=== PATIENT | male | born 1950 | race Caucasian/White ===

== ENCOUNTER 2022-09-20 14:46 | Emergency (ER) | payer MEDICARE, SELFPAY ==
[2022-09-20 14:48] VITALS: BP 135/76; PULSE 101; RESP 18; TEMP 37.3; O2SAT 96; BMI 30.7
--- NOTE | 2022-09-20 15:09 | EX.ED.DYSGE1 ---
HPI History of Present Illness Chief Complaint: General Illness Detail of Chief Complaint: Not feeling well and fever Informant: patient and spouse/S.O. Onset/Context/Timing Onset: Days (Onset of illness ) Context: Sudden Onset Timing: Continuous and Waxes and wanes Quality: Generalized feeling of unwellness, vague abdominal discomfort, constipation Location: Nothing specific Current Severity: Mild Maximum Severity: Moderate Worsened by: Nothing Relieved by: Nothing Associated Symptoms Associated Symptoms: Nausea, constipation, documented fever and vomiting today Narrative Narrative: Patient is a 72-year-old male who was [facility]. He has history of diverticulosis/diverticulitis. He states this is not similar. He apparently did work outside and it was shahid. is concerned for pneumonia. He admits to mild cough if anything. He has had a documented fever. He denies headache, visual, ocular auditory symptoms. He denies rhinorrhea, congestion, postnasal drainage or sore throat. The slight cough that he does have is nonproductive. He has been complaining of nausea. Today he has vomited. Dry heaves. Had episode of emesis prior to me seeing him. He initially complained of abdominal distention. Presently he does not have his abdominal distention. He states constipation is a chronic issue. He denies black, maroon or bloody stool. He denies urologic symptoms. He states his normal blood pressure is systolic of 1 35-1 45. Prior similar symptoms: No Recent Illness/Hospitalization: No [facility] Medical History (Updated 09/20/22 @ 20:[address] Gee Banegas MD) Nausea & vomiting Medical History no medical history no medical history (Has history of diverticulitis.) Home Medications cholecalciferol (vitamin D3) 25 mcg (1,000 unit) tablet (Vitamin D3) 25 mcg PO DAILY 09/20/22 [History Last Taken Unknown] hydrocodone-acetaminophen 5-325mg 5mg-325mg 1 tab PO Q6H PRN PRN Pain 3 days #10 TABLETS 09/20/22 [Rx Last Taken Unknown] inulin 2 gram chewable tablet (Fiber Gummies) 4 g PO DAILY 09/20/22 [History Last Taken Unknown] mecobalamin (vitamin B12) 1,000 mcg chewable tablet (B12 Active) 1,000 mcg PO DAILY 09/20/22 [History Last Taken Unknown] metoprolol succinate 25 mg tablet,extended release 24 hr 25 mg PO DAILY 09/20/22 [History Last Taken Unknown] ondansetron 4 mg disintegrating tablet 4 mg PO Q8H PRN PRN Nausea #10 tabs 09/20/22 [Rx Last Taken Unknown] Allergy/AdvReac Type Severity Reaction Status Date / Time acetaminophen [From Tylenol] AdvReac Other Verified 09/20/22 20:02 Surgical History no surgical history no surgical history (Appendectomy) Social History (Updated 09/20/22 @ 15:[address] Gee Banegas MD) household members: spouse Smoking Status: Former smoker alcohol intake: current alcohol intake frequency: holidays/special occasions only substance use type: does not use ROS ROS ED Constitutional Constitutional ED: Reports subjective; Denies chills, fever(s), sweats or weight loss Eyes Eyes: Denies blurry vision, change in vision or diplopia ENT ENT ED: Denies ear pain, rhinorrhea or sore throat Cardiovascular Cardiovascular: Reports other Details: He does endorse orthostatic symptoms. ; Denies chest pain, orthopnea, palpitations, paroxysmal nocturnal dyspnea or racing heartbeat Respiratory/Chest Respiratory/Chest: Reports cough; Denies dyspnea, dyspnea on exertion, orthopnea or paroxysmal nocturnal dyspnea Gastrointestinal Gastrointestinal: Reports abdominal pain, constipation, nausea and vomiting; Denies diarrhea or melena Genitourinary Genitourinary ED: Denies dysuria, hematuria or urinary frequency Musculoskeletal Musculoskeletal: Denies arthralgias, back pain, myalgias or neck pain Integumentary Denies abscess, Abrasions or rash Neurologic Neurologic: Reports weakness; Denies headache(s) or paresthesias Psychiatric Psychiatric: Denies anxiety or depression Hematologic/Lymphatic Hematologic/Lymphatic: Reports systems reviewed and no addt'l complaints, except as documented and none EXAM Physical Exam Const Vital Signs: 09/20/22 14:48 09/20/22 15:45 09/20/22 15:52 Temperature 99.2 F H Temperature Source Temporal Pulse Rate 101 H 95 Respiratory Rate 18 34 H Respiratory Effort Normal Non-Labored Respiratory Pattern Normal Blood Pressure 135/76 H Blood Pressure Mean 95 Pulse Ox 96 87 Oxygen Delivery Method Room Air Room Air Oxygen Flow Rate (L/min) 09/20/22 15:52 09/20/22 16:35 09/20/22 16:37 Temperature 99.6 F H Temperature Source Oral Pulse Rate 96 89 Respiratory Rate 28 H 18 Respiratory Effort Respiratory Pattern Blood Pressure 131/77 H 132/79 H Blood Pressure Mean 95 96 Pulse Ox 94 96 97 Oxygen Delivery Method Nasal Cannula Nasal Cannula Nasal Cannula Oxygen Flow Rate (L/min) 2 2 2 09/20/22 19:59 Temperature Temperature Source Pulse Rate 82 Respiratory Rate 16 Respiratory Effort Respiratory Pattern Blood Pressure 121/60 H Blood Pressure Mean 80 Pulse Ox 96 Oxygen Delivery Method Room Air Oxygen Flow Rate (L/min) Positive well nourished, well developed and obese Constitutional Narrative: Patient does not appear in distress; however, he does appear ill. General Appearance ED: well developed; Negative for cyanotic, diaphoretic, NAD or pallor Nutritional Appearance: obese HEENT Reports dry mucous membranes HEENT Narrative: Head is normocephalic atraumatic. Ears normal. Nares patent. Uvula midline. No deviation with protrusion. There is no erythema or exudate of posterior pharynx. Mouth ED: Yes dry mucous membranes Mouth: dry mucous membranes Eyes PERRL and EOMs intact bilaterally General Eye ED: Negative for pale conjunctiva or scleral icterus Neck no lymphadenopathy and supple Neck Narrative: There is no JVD. Chest Wall inspection of chest normal and palpation of chest normal Resp normal respiratory effort and clear to auscultation bilaterally Cardio regular rhythm, S1 normal heart sound, S2 normal heart sound and no murmurs Rate: tachycardic GI non-distended and no masses; Negative for hepatosplenomegaly Auscultation: hypoactive bowel sounds Palpation: soft, tender LLQ and RLQ and guarding RLQ; Negative for splenomegaly, mass or rebound tenderness present Back/Spine no CVA tenderness Thoracic Spine / Upper Back: Negative for thoracic spinal tenderness Lumbar Spine / Lower Back: Negative for lumbar spinal tenderness Extremity normal to inspection General Extremety ED: Negative for edema, tenderness or other findings General Extremity: Negative for edema or other findings Neuro oriented x3, CN's II-XII intact bilaterally and no sensory deficits noted Sensorium / Orientation: alert Motor Exam: strength 5/5 throughout Psych mental status grossly normal Skin no rashes or lesions noted General Skin Exam: Negative for jaundice or pallor MDM MDM MDM Narrative Medical decision making narrative: With abdominal pain nausea vomiting constipation prior history diverticulosis need to consider diverticulitis. There is no concern for bad appendicitis since he is status post appendectomy even though his maximal tenderness in the right lower quadrant. This may represent a right-sided diverticulitis. Also need to evaluate for etiology. Appropriate blood work was obtained assess white count, H&H, renal function, CO2 anion gap and electrolytes. He was given 6 4 mg of Zofran IV piggyback for his nausea and vomiting. Patient was reassessed at 2044. His pain is resolved. He no longer has nausea and vomiting. Lab Data Attestation: I reviewed the patient's lab results. Lab results narrative: White count is slight elevated with shift. Creatinine is elevated 1.21 with an estimated GFR 62. Glucose is 154. Total bili is 2.7 with an AST and ALT of 60 and 181 respectively. Alk phos is elevated 120. Urine is remarkable for ketones, occult blood, urobilinogen leukoesterase. Micro only reveals 0-5 RBCs and WBCs. There is 2+ bacteria. Urine culture was sent. Since he has abdominal pain with nausea vomiting elevated transaminases and total bili will obtain ultrasound of the gallbladder. Labs: Laboratory Results - last 24 hr 09/20/22 09/20/22 09/20/22 15:50 15:50 15:50 WBC 11.3 H RBC 4.69 Hgb 14.3 Hct 42.7 MCV 91.0 MCH 30.5 MCHC 33.5 RDW Std Deviation 45.4 H RDW Coeff of Tim 13.5 Plt Count 175 MPV 10.4 Immature Gran % (Auto) 0.500 Neut % (Auto) 87.9 H Lymph % (Auto) 3.3 L Burke % (Auto) 7.5 Eos % (Auto) 0.5 Baso % (Auto) 0.3 Absolute Neuts (auto) 9.9 H Absolute Lymphs (auto) 0.37 L Nucleated RBC % 0 Differential Comment SCANNED Sodium 137 Potassium 3.6 Chloride 104 Carbon Dioxide 29.0 Anion Gap 4 L BUN 12 Creatinine 1.21 Estim Creat Clear Calc 57.91 Est GFR (MDRD) Af Amer 76 Est GFR (MDRD) Non-Af 62 BUN/Creatinine Ratio 9.9 L Glucose 154 H Lactic Acid 1.1 Calcium 8.5 Total Bilirubin 2.70 H AST 60 H ALT 181 H Alkaline Phosphatase 120 H Total Protein 7.0 Albumin 3.1 L Globulin 3.9 Albumin/Globulin Ratio 0.8 L Urine Color Urine Clarity Urine pH Ur Specific Partlow Urine Protein Urine Glucose (UA) Urine Ketones Urine Occult Blood Urine Nitrite Urine Bilirubin Urine Urobilinogen Ur Leukocyte Esterase Urine RBC Urine WBC Ur Squamous Epith Cells Urine Bacteria Urine Mucus 09/20/22 16:30 WBC RBC Hgb Hct MCV MCH MCHC RDW Std Deviation RDW Coeff of Tim Plt Count MPV Immature Gran % (Auto) Neut % (Auto) Lymph % (Auto) Burke % (Auto) Eos % (Auto) Baso % (Auto) Absolute Neuts (auto) Absolute Lymphs (auto) Nucleated RBC % Differential Comment Sodium Potassium Chloride Carbon Dioxide Anion Gap BUN Creatinine Estim Creat Clear Calc Est GFR (MDRD) Af Amer Est GFR (MDRD) Non-Af BUN/Creatinine Ratio Glucose Lactic Acid Calcium Total Bilirubin AST ALT Alkaline Phosphatase Total Protein Albumin Globulin Albumin/Globulin Ratio Urine Color Yellow Urine Clarity Clear Urine pH 5.0 Ur Specific Partlow 1.020 Urine Protein 30 H Urine Glucose (UA) Normal Urine Ketones 15 H Urine Occult Blood 10 H Urine Nitrite Negative Urine Bilirubin Negative Urine Urobilinogen 4 H Ur Leukocyte Esterase 25 H Urine RBC 0-5 SEEN Urine WBC 0-5 SEEN Ur Squamous Epith Cells 0-5 SEEN Urine Bacteria 2+ Urine Mucus 2+ Radiography Diagnostic Testing: Clinical Impression(s) from Imaging Studies Gallbladder Ultrasound 09/20/22 17:00 IMPRESSION: There is biliary sludge dependent within the gallbladder vs small gallstones. 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 (i.e. Measuring a kidney on an US does not correlate with an exact same measurement on a CT.) Electronically Signed: Dayo Stone MD at 18:23 EDT , ADDENDUM: 09/20/22 [id number] IMPRESSION: undefined Discharge Plan Triage Chief Complaint: General Illness ED Provider: BassamGee Dx/Rx/DC Orders Clinical Impression: Biliary colic, Cholelithiasis, Nausea & vomiting Instructions: ED Gallstones with Biliary Colic Prescriptions: New hydrocodone-acetaminophen [hydrocodone-acetaminophen] 5-325 mg tablet 1 tab PO Q6H PRN PRN (Reason: Pain) 3 Days Qty: 10 0RF ondansetron [ondansetron] 4 mg tablet,disintegrating 4 mg PO Q8H PRN PRN (Reason: Nausea) Qty: 10 0RF No Action metoprolol succinate 25 mg tablet extended release 24 hr 25 mg PO DAILY Label Comments: TAKE 1 TABLET BY MOUTH EVERY DAY cholecalciferol (vitamin D3) [Vitamin D3] 25 mcg (1,000 unit) Tablet 25 mcg PO DAILY Fiber Gummies 2 gram Tablet,Chewable 4 g PO DAILY mecobalamin (vitamin B12) [B12 Active] 1,000 mcg Tablet,Chewable 1,000 mcg PO DAILY Primary Care Provider: Lasha Toledo Referrals: Simon Gannon MD [Med Staff - Active Staff] - 1 Week Lasha Toledo MD [Primary Care Provider] - Disposition Disposition: Home, Self Care
[2022-09-20] MEDS: 0.9% Normal Saline 1,000 ML 1000 ML IV (15:44)
[2022-09-20] MEDS: Ondansetron 4 MG/2 ML Vial IV (15:44)
[2022-09-20 15:52] VITALS: BP 131/77; PULSE 95; PULSE 96; RESP 28; RESP 34; O2SAT 87; O2SAT 94
[2022-09-20 16:08] LABS: Absolute Lymphocyte Count 0.37 X10^3/uL (0.83-4.51); Absolute Neutrophil Count 9.9 X10^3/uL (2.0-7.7); Basophil# 0.03 X10^3/uL; Basophil% 0.3 % (0-1); Eosinophil# 0.06 X10^3/uL; Eosinophils% 0.5 % (0-5); Hematocrit 42.7 % (40-54); Hemoglobin 14.3 g/dL (13.0-16.5); Lymphocyte # 0.37 X10^3/ul (0.83-4.51); Lymphocyte % 3.3 % (19-41); Mean Corp Hgb Conc 33.5 g/dL (32-36); Mean Corpuscular Hgb 30.5 pg (27.0-32.0); Mean Platelet Vol. 10.4 fl (6.2-12.0); Monocyte# 0.85 X10^3/uL; Monocyte% 7.5 % (0-10); NRBC Flagged by Analyzer 0 % (0-5); Neutrophil # 9.94 X10^3/uL (2.7-7.7); Neutrophil % 87.9 % (47-70); POSITIVE DIFFERENTIAL YES; Platelet Count 175 K/mm3 (150-450); RBC Distribution Width CV 13.5 % (11.6-14.6); RBC Distribution Width SD 45.4 fl (35.1-43.9); Red Blood Count 4.69 M/mm3 (4.6-6.2); White Blood Count 11.3 K/mm3 (4.4-11.0)
[2022-09-20 16:14] LABS: Differential Indicated SCAN CRITERIA MET
[2022-09-20 16:27] LABS: ALB/GLOB Ratio 0.8 RATIO (0.9-2.4); AST(SGOT) 60 U/L (15-37); Alanine Aminotransfer ALT/SGPT 181 U/L (16-61); Albumin, Serum 3.1 g/dL (3.2-5.0); Alkaline Phosphatase 120 U/L (45-117); Anion Gap 4 (5-15); BUN 12 mg/dL (7-18); BUN/Creat Ratio 9.9 RATIO (10-20); Calcium,Total 8.5 mg/dL (8.5-10.1); Chloride 104 mmol/L (98-107); Creatinine, Serum 1.21 mg/dL (0.70-1.30); EST Glomerular Filtration Rate 62 mL/min (>60); Est Glom Filt Rate - Afr Amer 76 mL/min (>60); Estimated Creatinine Clearance 57.91 ml/min; Globulin 3.9 g/dL (2.2-4.2); Glucose 154 mg/dL (74-106); Potassium 3.6 mmol/L (3.5-5.1); Sodium Level 137 mmol/L (136-145)
[2022-09-20 16:35] VITALS: O2SAT 96
[2022-09-20 16:37] VITALS: BP 132/79; PULSE 89; RESP 18; TEMP 37.6; O2SAT 97
[2022-09-20 16:40] LABS: Color, Urine Yellow (Yellow); Glucose, Dipstick Normal (Normal); Ketone-Dipstick 15 mg/dl (Negative); Leukocyte Esterase-Dipstick 25 /ul (Negative); Nitrite-Dipstick Negative (Negative); Occult Blood-Urine 10 /ul (Negative); Protein-Dipstick 30 mg/dl (Negative); Urine Bilirubin Dipstick Negative (Negative); Urine Clarity Clear (Clear); Urine Urobilinogen 4 mg/dl (Normal)
[2022-09-20 16:50] LABS: Red Blood Cells-Urine 0-5 SEEN /hpf (0-5); Squamous Epithelial Cells - UA 0-5 SEEN /hpf (0-5); White Blood Cells 0-5 SEEN /hpf (0-5)
[2022-09-20 16:51] LABS: Bacteria 2+ /hpf (None Seen); Mucous, Urine 2+ /hpf (<or=2+)
[2022-09-20 16:52] LABS: Differential Comment SCANNED
--- NOTE | 2022-09-20 17:00 | US_ITS ---
STUDY: ABDOMINAL ULTRASOUND - RIGHT UPPER QUADRANT REASON FOR VISIT: Male, 72 years old. ABDOMEN PAIN Pain, nausea and vomiting and elevated enzymes and TECHNIQUE: Ultrasound evaluation of the right upper quadrant was performed with real-time and static turpin-scale imaging. TECHNICAL QUALITY: Adequate. COMPARISON: None FINDINGS: Liver: There is normal echogenicity of the liver. The bile ducts are within normal limits. There is hepatic color flow. The direction of portal flow is hepatopetal. There is no demonstrated mass lesion. Gallbladder: Normal distended gallbladder. The gallbladder wall measures 3.2mm. There is a negative sonographic Pete''s sign. There is no pericholecystic fluid. There is biliary sludge dependent within the gallbladder vs small gallstones. Common Bile Duct (C.B.D.): The common bile duct measures ( in mm): 4.8 Pancreas: Normal size of the head, body of the pancreas. There is increased echogenicity of the pancreas. There is no demonstrated pancreatic mass or cyst. Right Kidney: Normal size of the right kidney. The right kidney measures 11.6 cm. . Normal renal cortex. There is no demonstrated renal mass or cyst. There is no right hydronephrosis. Aorta: It is not visualized. There is too much overlying bowel gas. . US/Gallbladder IMPRESSION: There is biliary sludge dependent within the gallbladder vs small gallstones. Note: Renal size measurements and size measurements of other organs etc may vary depending on modality and rod tape operator dependent variations in measurements. (i.e. Measuring a kidney on an US does not correlate with an exact same measurement on a CT.) Electronically Signed: Dayo Stone MD at 18:23 EDT ,
[2022-09-20 17:06] LABS: Lactic Acid 1.1 mmol/L (0.4-1.9)
[2022-09-20 19:59] VITALS: BP 121/60; PULSE 82; RESP 16; O2SAT 96
== END 2022-09-20 21:07 | disposition home or self-care (01) ==
PROVIDERS: Emergency Provider Emergency Medicine; PCP Family Medicine; Visit Provider Emergency Medicine
DX: K80.70 Calculus of gallbladder and bile duct without cholecystitis without obstruction (principal); R11.2 Nausea with vomiting, unspecified; Z87.891 Personal history of nicotine dependence; R14.0 Abdominal distension (gaseous); Z79.899 Other long term (current) drug therapy
CPT/HCPCS: 76705; 80053; 81001; 83605; 85025; 87086; 99284; J7030; J2405